=== PATIENT | male | born 1955 | race Caucasian/White ===

== ENCOUNTER → 2018-02-18 | Outpatient (CLI) | payer BC ==
[~2018-02-18] MED LIST: ASPIRIN 32325 MG/TA1 PO; CALCIUM 600/VIT1 CAP PO; COREG12.5 MG PO; COZAAR100 MG PO; FISH OIL 1000MG1 CAP PO; GLUCOPHAGE500 MG/TAB PO; LANTUS SOLOS100 U/ML SQ; LIPITOR 40MG TA40 MG PO; NORVASC 5MG5 MG/TAB PO; VICTOZA6 MG/ML SQ; VITAMIN C500 MG PO; VITAMIN E 400 U4001 PO
[2018-02-18 16:52] LABS: CALCIUM 9.1 mg/dL (8.4-10.2); POTASSIUM 4.4 mmol/L (3.4-5.0)
[2018-02-18 17:19] LABS: CREATININE, serum 1.25 mg/dL (0.66-1.25)
== END ==
LOC: COL.LAB 16:01
PROVIDERS: Internal Medicine Pulmonary Disease
DX: R91.8 Other nonspecific abnormal finding of lung field (principal)

== ENCOUNTER 2018-06-22 13:13 | Emergency (ER) | payer BC ==
[2018-06-22 13:36] VITALS: TEMP 97
[2018-06-22 13:37] LABS: PROTHROMBIN TIME 11.2 SECONDS (9.7-12.8)
[2018-06-22 13:39] LABS: PARTIAL THROMBOPLASTIN TIME 31.9 SECONDS (26.0-37.0)
[2018-06-22 13:50] LABS: ALBUMIN 4.3 gm/dL (3.5-5.0); CREATININE, serum 0.84 mg/dL (0.66-1.25); POTASSIUM 4.7 mmol/L (3.4-5.0); TOTAL PROTEIN 7.6 gm/dL (6.4-8.2)
[2018-06-22 14:01] LABS: BASO % 0.2 % (0.0-2.0); GRAN # 11.5 (1.4-6.5); GRAN % 87.1 % (42.2-75.2); HEMATOCRIT 45.1 % (42.0-52.0); LYMPH # 1.2 (1.2-3.4); LYMPH % 8.9 % (20.0-51.0); MEAN CELL VOLUME 89 fl (80.0-100.0); MEAN CORPUSCULAR HEMOGLOBIN 32 pg (27.0-31.0); MEAN CORPUSCULAR HGB CONC 36 g/dl (33.0-37.0); MEAN PLATELET VOLUME 11.7 fl (7.4-10.4); MONO # 0.5 (0.1-0.6); MONO % 3.6 % (1.7-9.3); PLATELET COUNT 215 K/mm3 (130-400); RED BLOOD COUNT 5.06 M/mm3 (4.20-5.60); REDCELL DISTRIBUTION WIDTH-CV 12.5 % (11.5-14.5)
[2018-06-22 14:02] LABS: TROPONIN-I 0.051 ng/mL (0.000-0.034)
[2018-06-22 14:35] VITALS: BP 142/104; PULSE 106
[2018-06-22] MEDS ORDERED: 00186-0370-20 IH (15:17)
[2018-06-22] MEDS ORDERED: VICTOZA6 MG/ML SQ (15:18)
[2018-06-22 16:05] LABS: ARTERIAL BLD GAS O2 SATURATION 98.3 % (92-100); ARTERIAL BLD GAS TCO2 CT 21.1; ARTERIAL BLOOD GAS BASE EXCESS -6.1 (-2-2); ARTERIAL BLOOD GAS HCO3 19.9 meq/L (22-26); ARTERIAL BLOOD GAS PO2 146.6 mmHg (80-100)
== END 2018-06-22 15:10 | disposition short-term general hospital (02) ==
LOC: COL.ER 13:13
PROVIDERS: Emergency Medicine
DX: I62.9 Nontraumatic intracranial hemorrhage, unspecified (principal); G81.93 Hemiplegia, unspecified affecting right nondominant side; I25.10 Atherosclerotic heart disease of native coronary artery without angina pectoris; E11.9 Type 2 diabetes mellitus without complications; I10 Essential (primary) hypertension; Z79.82 Long term (current) use of aspirin; Z79.4 Long term (current) use of insulin
CPT/HCPCS: J0330; J1953; J2704; J3010; J7030; J7050